=== PATIENT | male | born 1965 | race American Indian/Alaskan Native ===

== ENCOUNTER 2017-05-07 11:45 | Emergency (ER) | payer OTHER ==
[2017-05-07 11:46] VITALS: BMI 32.5
[2017-05-07 11:57] VITALS: TEMP 97.9; O2SAT 98
--- NOTE | 2017-05-07 12:51 | RAD ---
PROCEDURE: Radiographs of the Left Shoulder HISTORY: pain COMPARISON: No prior. FINDINGS: BONES: Normal. No fracture. 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 SOFT TISSUES: Normal. OTHER FINDINGS: None. IMPRESSION: No evidence of acute displaced fracture nor dislocation. Mild DJD as described.
--- NOTE | 2017-05-07 12:59 | C.PDOC ---
History Of Present Illness 52 year old male presents to the ED with complaints of left shoulder pain sustained last night after a trip and fall outside of his home. Patient reports he had rotator cuff surgery on the left shoulder last year. He notes he took took Motrin before 9 am this morning with no improvement of pain. Patient denies head injury, LOC, back pain, or other injuries. Time Seen by Provider: 05/07/17 11:57 Chief Complaint (Nursing): Upper Extremity Problem/Injury History Per: Patient History/Exam Limitations: no limitations Onset/Duration Of Symptoms: Hrs Current Symptoms Are (Timing): Still Present Quality: "Pain" Exacerbating Factor(s): Movement Recent travel outside of the [place]: No Past Medical History Reviewed: Historical Data, Nursing Documentation, Vital Signs Vital Signs: Last Vital Signs Temp 97.9 F 05/07/17 13:05 Pulse 82 05/07/17 13:05 Resp 18 05/07/17 13:05 BP 132/84 05/07/17 13:05 Pulse Ox 98 05/07/17 18:22 - Medical History PMH: Anxiety, Depression, HTN - [facility] DETOXIF[facility] FOR SUBSTANCE ABUSE TREATMENT (05/20/16) Family History: States: Unknown Family Hx - Social History Hx Alcohol Use: Yes Hx Substance Use: No - Immunization History Hx Tetanus Toxoid Vaccination: No Hx Influenza Vaccination: No Hx Pneumococcal Vaccination: No Review Of Systems Musculoskeletal: Positive for: Shoulder Pain (left shoulder pain ). Negative for: Neck Pain, Back Pain Neurological: Negative for: Weakness, Numbness Physical Exam - Physical Exam Appears: Non-toxic, Other (Patient appears to be in mild painful distress ) Skin: Warm, Dry Head: Atraumatic, Normacephalic Eye(s): bilateral: Normal Inspection, PERRL, EOMI Neck: No Midline Cervical Tenderness, No Paracervical Tenderness, Supple Chest: Symmetrical, No Deformity Cardiovascular: Rhythm Regular, No Murmur Respiratory: No Rales, No Rhonchi, No Wheezing, Other (clear to auscultation bilaterally ) Extremity: Tenderness (mild tenderness to left shoulder ), Capillary Refill ( good capillary refill, less than two seconds ), No Deformity, No Swelling, Other (unable to abduct L shoulder, secondary to pain ) Neurological/Psych: Oriented x3, Normal Motor, Normal Sensation ED Course And Treatment O2 Sat by Pulse Oximetry: 98 (RA) - Other Rad Left Shoulder X-Ray X-Ray: Viewed By Me, Read By Radiologist Interpretation: FINDINGS: BONES: Normal. No fracture. 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 SOFT TISSUES: Normal. OTHER FINDINGS: None. IMPRESSION: No evidence of acute displaced fracture nor dislocation. Mild DJD as described. Progress Note: Left shoulder X-Ray was ordered and patient was given Ultram. Medical Decision Making Medical Decision Making: Shoulder sling applied. Instructed RICE to the L shoulder and to f/u with his orthopedist. Disposition Counseled Patient/Family Regarding: Studies Performed, Diagnosis, Need For Followup, Rx Given - Disposition Disposition: HOME/ ROUTINE Disposition Time: 12:57 Condition: STABLE Additional Instructions: Follow up with your ortho in 2 days for re-evaluation and follow up. Rest, ice, wear sling, take medication as prescribed. Return to the ER at any time for any new or worsening symptoms. 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 - Scribe Statement The provider has reviewed the documentation as recorded by the Scribe Taisha Whitley All medical record entries made by the Sanjuanitaibe were at my direction and personally dictated by me. I have reviewed the chart and agree that the record accurately reflects my personal performance of the history, physical exam, medical decision making, and the department course for this patient. I have also personally directed, reviewed, and agree with the discharge instructions and disposition.
[2017-05-07 13:12] VITALS: BP 132/84; PULSE 82; RESP 18
== END 2017-05-07 13:10 | disposition home or self-care (01) ==
LOC: C.ER 11:45
DX: S40.012A Contusion of left shoulder, initial encounter (principal); W01.0XXA Fall on same level from slipping, tripping and stumbling without subsequent striking against object, initial encounter; Y92.009 Unspecified place in unspecified non-institutional (private) residence as the place of occurrence of the external cause; I10 Essential (primary) hypertension; M19.012 Primary osteoarthritis, left shoulder